=== PATIENT | female | born 1985 | race Caucasian/White ===

== ENCOUNTER 2021-02-04 12:27 | Outpatient (CLI) | payer OTHER, SELFPAY ==
[2021-02-04 12:45] VITALS: BP 115/74; PULSE 86
[2021-02-04 12:59] VITALS: PULSE 91; O2SAT 96
[2021-02-04 13:03] LABS: Glucose Point of Care 84 mg/dl (65-105)
[2021-02-04 13:04] VITALS: PULSE 70; O2SAT 100
--- NOTE | 2021-02-04 13:10 | PC.NURSE ---
1300-Pt called out and stated that she could not breathe. When entering the room, pt was pale and stated that she was nauseated and felt like she was going to pass out. Pt was given a cool rag, VSS, and pt reassured that everything was ok. ROM plus was negative and heart tones were appropriate for gestational age. Pt was turned to side, and given juice to drink and began feeling better. Remained at bedside with pt and pt stated that she felt better. Pt was no longer pale or nauseated.
--- NOTE | 2021-02-04 13:19 | PC.NURSE ---
Called Dr. Kirkpatrick. Informed of pt calling out stating that she couldn't breathe. Pt states that she feels better and would like to go home. PT states that she has anxiety and feels that it was an anxiety attack. VS remained stable and blood sugar was 84. May D/C home.
== END 2021-02-04 13:20 | disposition home or self-care (01) ==
LOC: ANHOBOP 12:31 → ANHOBPP 12:32
PROVIDERS: PCP Physician Assistant; Visit Provider Obstetrics & Gynecology
DX: O41.8X90 Other specified disorders of amniotic fluid and membranes, unspecified trimester, not applicable or unspecified (principal); Z3A.00 Weeks of gestation of pregnancy not specified
CPT/HCPCS: 82948; 84112; 99199

== ENCOUNTER 2021-05-29 11:23 | Outpatient (CLI) | payer BC, OTHER, SELFPAY ==
[2021-05-29 14:09] LABS: Hematocrit 39.1 % (37.0-47.0); Hemoglobin 13.2 g/dL (12.0-15.0); Mean Corpuscular HGB Conc 33.8 g/dl (32-36); Mean Corpuscular Hemoglobin 32.6 pg (26-34); Mean Corpuscular Volume 96.5 fl (80-100); Platelet Count Result 196 k/mm3 (150-375); Red Blood Count 4.05 M/mm3 (4.2-5.4); Red Cell Distribution Width 12.9 % (11.5-14.5); White Blood Count 12.2 K/mm3 (4.5-10.0)
[2021-05-31 07:40] LABS: Rapid Plasma Reagin Non-Reactive (NonReactive)
== END 2021-05-29 11:24 | disposition home or self-care (01) ==
PROVIDERS: PCP Physician Assistant; Visit Provider Obstetrics & Gynecology
DX: Z34.93 Encounter for supervision of normal pregnancy, unspecified, third trimester (principal); Z3A.00 Weeks of gestation of pregnancy not specified
CPT/HCPCS: 36415; 85027; 86592; 86850; 86900; 86901

== ENCOUNTER 2021-05-31 04:58 | Inpatient (IN) | payer BC, OTHER, SELFPAY ==
[2021-05-31] VITALS (36 sets, daily range): BP systolic 91–122; BP diastolic 60–88; PULSE 52–142; RESP 16–18; TEMP 36.1–36.6; O2SAT 96–100; BMI 25.8
--- OUTSIDE RECORDS SUMMARY | 2021-05-31 05:04 | XMS_ITS | Encounter Summary ---
:1985 Author Care Team Providers Name Role Phone Oumou PATEL Primary Care Provider [phone] Reason for Visit OB visit 35w4d Assessment and Plan 1. Routine care Discussion Note: None recorded.Patient educational handouts: No information available. Plan of Care Reminders Provider Appointments Surg Post 06/07/2021 Leonard Slater Op 1:45PM MD [facility] Lab None ? ? recorded. Referral None ? ? recorded. Procedures None ? ? recorded. Surgeries None ? ? recorded. Imaging None ? ? recorded. Medications Name Start Date ? ? ? Medications Administered None recorded. Vitals Height Weight BMI Blood Pressure 5 ft 1.5 in 140 lbs 26 kg/m2 124/85 mm[Hg] Results Lab Results None recorded. Allergies Code Code System Name Reaction Severity Onset 820644 RxNorm Augmentin Headache Mild to Moderate ? Problems Name Status Onset Date Source ? Active 11/26/2020 ? Procedures Date Name Performed by ?
--- OUTSIDE RECORDS SUMMARY | 2021-05-31 05:04 | XMS_ITS | Encounter Summary ---
:1985 Author Care Team Providers Name Role Phone Oumou PATEL Primary Care Provider [phone] Reason for Visit OB visit Assessment and Plan Assessment Note Patient is ___weeks . Discu ssed plan. 1. Routine care Discussion Note: None recorded.Patient [...] ft 1.5 in 140 lbs 26 kg/m2 (1) 127/88 mm[H g] (2) 130/86 mm[Hg ] Results Lab Results None recorded. Allergies Code Code System Name Reaction Severity Onset 971333 RxNorm Augmentin Headache Mild to Moderate ? Problems Name Status Onset Date Source ?
--- OUTSIDE RECORDS SUMMARY | 2021-05-31 05:04 | XMS_ITS | Encounter Summary ---
:1985 Author Care Team Providers Name Role Phone Oumou PATEL Primary Care Provider [phone] Reason for Visit OB visit Assessment and [...] ft 1.5 in 140 lbs 26 kg/m2 118/81 mm[Hg] Results Lab Results None recorded. Allergies Code Code System Name Reaction Severity Onset 311964 RxNorm Augmentin Headache Mild to Moderate ? Problems Name Status Onset Date Source ? Active 11/26/2020 ? Procedures Date
--- OUTSIDE RECORDS SUMMARY | 2021-05-31 05:04 | XMS_ITS ---
:1985 Author Care Team Providers Name Role Phone MANUELITO PATEL Primary Care Provider [phone] Allergies Code Code System Name Reaction Severity Status Onset 468503 RxNorm Augmentin Headache Mild to Active ? Moderate Medications Name Status Start Date Stop Date ? ? azithromycin 250 mg tablet Completed ? 10/01 Bactrim DS 800 mg-160 mg tablet Completed 11/26/2014 12/01/2014 take 1 tablet by oral route every 12 hours Bactroban 2 % topical ointment Completed 02/18/2015 0 10/01/2020 apply by topical route 3 times every day a small amount to the affected area Cipro 500 mg tablet Completed 01/13/2015 02/18/2015 take 1 tablet by oral route every 12 hours clonazepam 0.25 mg Completed ? 10/29/2020 disintegrating tablet Flexeril 5 mg tablet Completed 06/25/2014 09/10/2014 take 1 tablet by oral route 3 times every day as needed for nelson k pain Keflex 500 mg capsule Completed 12/01/2014 01/13/2015 take 1 capsule by oral route every 6 hours Active ? Not available Multi-DHA (with vitamin K) 27 mg iron-800 mcg-260 m g capsule Completed ? 01/20/2021 Take 1 capsule every day by oral route. promethazine 12.5 mg tablet Completed 02/28/201409/2014 take 1 tablet by oral route 4 times every day before meals and at bedtime tizanidine 4 mg tablet Completed ? TAKE 1 TABLET BY MOUTH EVERY 8 HOURS NEEDED Vitamin D2 1,250 mcg (50,000 unit) capsule Completed 03/2809/10/2014 take 1 capsule by oral route every week Problems Name
--- OUTSIDE RECORDS SUMMARY | 2021-05-31 05:04 | XMS_ITS | Encounter Summary ---
:1985 Author Care Team Providers Name Role Phone Oumou PATEL Primary Care Provider [phone] Reason for Visit OB visit 36w3d Assessment and Plan 1. Routine care Discussion [...] BMI Blood Pressure 5 ft 1.5 in 139 lbs 25.8 kg/m2 124/82 mm[Hg] Results Lab Results None recorded. Allergies Code Code System Name Reaction Severity Onset 515066 RxNorm Augmentin Headache Mild to Moderate ? Problems Name Status Onset Date Source ? Active 11/26/2020 ? Procedures Date Name Performed by ?
--- OUTSIDE RECORDS SUMMARY | 2021-05-31 05:05 | XMS_ITS ---
:1985 Author Allergies Code Code System Name Reaction Severity Status Onset 279835 RxNorm Augmentin ? ? Active ? Medications Name Status Start Date Stop Date ? ? almotriptan malate 12.5 mg tablet Completed ? 05/02/2016 amoxicillin 875 mg tablet Completed ? 2018 TAKE 1 TABLET BY MOUTH EVERY 12 HOURS amoxicillin 875 mg-potassium clavulanate 125 mg tablet Completed ? 11/15/2018 TAKE 1 TABLET BY MOUTH EVERY 12 HOURS azithromycin 250 mg tablet Active ? Not a vailable B2-magnesium cit,oxid-feverfew Completed ? 0 10/08/2018 takes one daily cefdinir 300 mg capsule Completed ? 05/25/19 17 TK 1 C PO Q 12 H clonazepam 0.25 mg disintegrating tablet Active ? Not available DISSOLVE 1 TABLET IN MOUTH ONCE DAILY NEEDED Imitrex 50 mg tablet Completed ? 12/30/2016 Take 1 tablet by oral route as needed. methocarbamol 750 mg tablet Completed ? 09/17 Nexium 40 mg capsule,delayed release Completed ? 11/18/2019 Take 1 capsule every day by oral route. omeprazole 40 mg capsule,delayed Completed ? 12/30/2016 release ondansetron HCl 4 mg tablet Completed ? 04/20 penicillin V potassium 500 mg tablet Completed ? 11/18/2019 TK 1 T PO 2 TIMES D FOR 10 DAYS propranolol ER 60 mg capsule,24 Completed ? 05/02/2016 hr,extended release sertraline 50 mg tablet Completed ? 06/25/19 17 TK 1 T PO QD valacyclovir 1 gram tablet Completed ? 10/08 Problems N
--- OUTSIDE RECORDS SUMMARY | 2021-05-31 05:05 | XMS_ITS ---
:1985 Author Allergies Code Code System Name Reaction Severity Status Onset NKDA ? Medications Name Status Start Date Stop Date ? ? amoxicillin 500 mg capsule Completed ? 12/07 Take 1 capsule 3 times a day by oral route for 10 days. clonazepam 0.5 mg tablet Completed ? 014 TK 1 T PO QD cyclobenzaprine 10 mg tablet Completed ? hydrocodone 7.5 mg-ibuprofen 200 mg Completed ? 10/09/2013 tablet Tessalon Perles 100 mg capsule Active ? N ot available Take 1 capsule 3 times a day by oral route. Problems Name Status Onset Date Source ? Anxiety State Active ? ? Neck Pain Active ? Encounter Palpitations Active ? Encounter Procedures Date Name Performed by ? 03/20/2002 Hernia Repair Information not avai lable 10/09/2013 Echocardiogram, Follow up or Limited Inf ormation not available Study 10/09/2013 Holter Monitor Information not avai lable Results Lab Results Date Name Specimen Result Interpretation Description Value Range Status Address ? 03/09/2020 Rapid SARS CoV ? Sars-cov-2 nonreactive no nreactive Final Flom 2 Ag, QL [place], (Covid-19) [facility] Antigen [facility] (Lab):
--- OUTSIDE RECORDS SUMMARY | 2021-05-31 05:05 | XMS_ITS | Encounter Summary ---
:1985 Author Care Team Providers Name Role Phone Oumou PATEL Primary Care Provider [phone] Reason for Visit None recorded. Assessment and Plan 1. Polyhydramnios ? US, obstetric, limited Discussion Note: None recorded.Patient educational handouts: No information available. Plan of Care Reminders Provider Appointments Surg Post Leonard Slater Op 06/07/2021 MD [facility] 1:45PM Lab None ? ? recorded. Referral None ? ? recorded. Procedures None ? ? recorded. Surgeries None ? ? recorded. Imaging , [facility] 04/23/2021 Medications Name Start Date ? ? ? Medications Administered None recorded. Vitals None recorded. Results Lab Results None recorded. Allergies Code Code System Name Reaction Severity Onset [id number] RxNorm Augmentin Headache Mild to Moderate ? Problems Name Status Onset Date Source ? Active 11/26/2020 ? Procedures Date Name Performed by ?
--- OUTSIDE RECORDS SUMMARY | 2021-05-31 05:05 | XMS_ITS | Encounter Summary ---
:1985 Author Care Team Providers Name Role Phone Oumou PATEL Primary Care Provider [phone] Reason for Visit None recorded. Assessment and Plan 1. Medical examination for suspe cted condition ? US, obstetric, follow-up Discussion Note: None recorded.Patient educational handouts: No information available. Plan of Care Reminders Provider Appointments Surg Post 06/07/2021 Leonard Kirkpatrick, [place] 1:45PM Lab None ? ? recorded. Referral None ? ? recorded. Procedures None ? ? recorded. Surgeries None ? ? recorded. Imaging US, 04/15/2021 [facility], Follow-up Medications Name Start Date ? ? ? Medications Administered None recorded. Vitals None recorded. Results Lab Results None recorded. Allergies Code Code System Name Reaction Severity Onset [id number] RxNorm Augmentin Headache Mild to Moderate ? Problems Name Status Onset Date Source ? Active 11/26/2020 ? Procedures Date Name Performed by ?
--- OUTSIDE RECORDS SUMMARY | 2021-05-31 05:05 | XMS_ITS | Encounter Summary ---
:1985 Author Care Team Providers Name Role Phone Oumou PATEL Primary Care Provider [phone] Reason for Visit OB visit 31w3d Assessment and Plan 1. Routine care Discussion [...] BMI Blood Pressure 5 ft 1.5 in 135 lbs 25.1 kg/m2 132/86 mm[Hg] Results Lab Results None recorded. Allergies Code Code System Name Reaction Severity Onset 871706 RxNorm Augmentin Headache Mild to Moderate ? Problems Name Status Onset Date Source ? Active 11/26/2020 ? Procedures Date Name Performed by ?
--- OUTSIDE RECORDS SUMMARY | 2021-05-31 05:05 | XMS_ITS | Encounter Summary ---
:1985 Author Care Team Providers Name Role Phone Oumou PATEL Primary Care Provider [phone] Reason for Visit OB visit 28W2D / glucose today Assessment and Plan 1. Routine care Discussion [...] BMI Blood Pressure 5 ft 1.5 in 133 lbs 24.7 kg/m2 134/87 mm[Hg] Results Lab Results None recorded. Allergies Code Code System Name Reaction Severity Onset 883290 RxNorm Augmentin Headache Mild to Moderate ? Problems Name Status Onset Date Source ? Active 11/26/2020 ? Procedures Date Name Performed by ?
--- OUTSIDE RECORDS SUMMARY | 2021-05-31 05:05 | XMS_ITS | Encounter Summary ---
:1985 Author Care Team Providers Name Role Phone Oumou PATEL Primary Care Provider [phone] Reason for Visit None recorded. Assessment and Plan 1. Reduced movement ? non-stress test Discussion Note: None recorded.Patient educational handouts: No information available. Plan of Care Reminders Provider Appointments Surg Post 06/07/2021 Leonard Kirkpatrick, Op 1:45PM Lab None ? ? recorded. Referral None ? ? recorded. Procedures None ? ? recorded. Surgeries None ? ? recorded. Imaging 04/28/2021 [place] Non-stress Test Medications Name Start Date ? ? ? Medications Administered None recorded. Vitals Blood Pressure 118/83 mm[Hg] Results Lab Results None recorded. Allergies Code Code System Name Reaction Severity Onset 955223 RxNorm Augmentin Headache Mild to Moderate ? Problems Name Status Onset Date Source ? Active 11/26/2020 ? Procedures Date Name Performed by ?
--- OUTSIDE RECORDS SUMMARY | 2021-05-31 05:05 | XMS_ITS ---
:1985 Author Care Team Providers Name Role Phone Menossi Primary Care Provider Unavailable Allergies Code Code System Name Reaction Severity Status Onset 467944 RxNorm Augmentin ? ? Active ? Medications Name Status Start Date Stop Date ? ? almotriptan malate 12.5 mg Completed ? 05/02 tablet amoxicillin 500 mg capsule Completed ? 12/07 Take 1 capsule 3 times a day by oral route for 10 days. amoxicillin 875 mg tablet Completed ? 2018 TAKE 1 TABLET BY MOUTH EVERY 12 HOURS amoxicillin 875 mg-potassium clavulanate 125 mg tablet Completed ? 11/15/2018 TAKE 1 TABLET BY MOUTH EVERY 12 HOURS azithromycin 250 mg tablet Completed ? 08/05 B2-magnesium cit,oxid-feverfew Completed 05/24/2016 0 10/08/2018 takes one daily cefdinir 300 mg capsule Completed ? 05/25/19 17 TK 1 C PO Q 12 H clonazepam 0.25 mg disintegrating tablet Active ? Not available DISSOLVE 1 TABLET IN MOUTH TWICE DAILY NEEDED FOR ANXIETY clonazepam 0.5 mg tablet Completed ? 014 TK 1 T PO QD cyclobenzaprine 10 mg tablet Completed ? hydrocodone 7.5 mg-ibuprofen 200 Completed ? 10/09/2013 mg tablet Imitrex 50 mg tablet Completed 05/24/2016 12/30/2016 Take 1 tablet by oral route as needed. methocarbamol 750 mg tablet Completed ? 09/17 Nexium 40 mg capsule,delayed release Completed ? 11/18/2019 Take 1 capsule every day by oral route. omeprazole 40
--- OUTSIDE RECORDS SUMMARY | 2021-05-31 05:05 | XMS_ITS | Encounter Summary ---
:1985 Author Care Team Providers Name Role Phone Oumou PATEL Primary Care Provider [phone] Reason for Visit OB visit 32W4D Assessment and Plan 1. Routine care Discussion [...] BMI Blood Pressure 5 ft 1.5 in 136 lbs 25.3 kg/m2 110/76 mm[Hg] Results Lab Results None recorded. Allergies Code Code System Name Reaction Severity Onset 320645 RxNorm Augmentin Headache Mild to Moderate ? Problems Name Status Onset Date Source ? Active 11/26/2020 ? Procedures Date Name Performed by ?
--- OUTSIDE RECORDS SUMMARY | 2021-05-31 05:05 | XMS_ITS | Encounter Summary ---
:1985 Author Care Team Providers Name Role Phone Oumou PATEL Primary Care Provider [phone] Reason for Visit None recorded. Assessment and Plan 1. condition affecting obs tetrical care of mother ? US, obstetric, biophysical profile + non-stress test Discussion Note: None recorded.Patient educational handouts: No information available. Plan of Care Reminders Provider Appointments Surg Post Op Emilie Slater 06/07/2021 MD [facility] 1:45PM Lab None recorded. ? ? Referral None recorded. ? ? Procedures None recorded. ? ? Surgeries None recorded. ? ? Imaging US, Obstetric, [facility] Biophysical Profile + 04/28/2021 Non-stress Test Medications Name Start Date ? ? ? Medications Administered None recorded. Vitals None recorded. Results Lab Results None recorded. Allergies Code Code System Name Reaction Severity Onset 266287 RxNorm Augmentin Headache Mild to Moderate ? Problems Name Status Onset Date Source ? Active 11/26/2020 ? Procedures
--- OUTSIDE RECORDS SUMMARY | 2021-05-31 05:05 | XMS_ITS | Encounter Summary ---
:1985 Author Care Team Providers Name Role Phone Oumou PATEL Primary Care Provider [phone] Reason for Visit OB visit Assessment and [...] BMI Blood Pressure 5 ft 1.5 in 137 lbs 25.5 kg/m2 120/79 mm[Hg] Results Lab Results None recorded. Allergies Code Code System Name Reaction Severity Onset 351528 RxNorm Augmentin Headache Mild to Moderate ? Problems Name Status Onset Date Source ? Active 11/26/2020 ? Procedures Date
--- NOTE | 2021-05-31 06:09 | LDADM ---
This patient, Bella Woodward, was admitted to Labor/Delivery/Recovery 120 on 05/31/21 at 04:58. Plans for labor, pain management and were discussed with patient. Patient/family oriented to hospital policies and general routines including ID bracelet, bed and alarms, visiting hours, pain management, procedures, bathroom and other care routines, personal items, smoking policy, room service/diet and guest tray routines, security routines, and visiting hours. Patient/Family are encouraged to report perceived risks to care and to ask questions if they do not understand what they are told or what they should do. See OBIX for further documentation.
[2021-05-31] MEDS: LACTATED RINGERS 1,000 ML 125 ML IV CONT ×2 (06:12→07:00)
--- NOTE | 2021-05-31 06:53 | WPDHPUPDATE1 ---
History and Physical Update Update Date/Time: 05/31/21 06:53 History and Physical has been reviewed, including an updated exam of the patient. There are NO changes in the patient's condition. Risks, benefits, and alternatives have been discussed and questions answered. Patient agrees to proceed with procedure.
--- NOTE | 2021-05-31 06:53 | PM.IMHP ---
H&P: HPI History of Present Illness Date/Time: 05/31/21 06:53This patient is a 35-year-old multiparous female who presents for repeat delivery. She has a history of delivery. She is also desirous of female sterilization. We have agreed to perform repeat delivery and bilateral salpingectomy or tubal ligation. She understands that injuries may occur that result in hospitalization, more surgery, and severe illness. She understands risk of infection and hemorrhage. She denies any chest pain or shortness of breath. She denies any nausea, vomiting, fever, chills. She reports good movement. She denies any contractions, loss of fluid, vaginal bleeding. Chief Complaint: term Review of Systems Review of Systems: All systems reviewed & are unremarkable except as noted in HPI and below Constitutional: Constitutional: Denies chills, Denies fatigue, Denies fever(s) and Denies weakness Eyes: Eyes: Denies blurry vision, Denies change in vision, Denies loss of peripheral vision, Denies loss of vision, Denies other visual disturbances and Denies eye pain ENT: Denies vertigo, Denies dizziness, Denies hearing loss, Denies mouth pain, Denies nasal obstruction, Denies neck mass and Denies neck pain Cardiovascular: Cardiovascular: Denies chest pain, Denies diaphoresis, Denies syncope, Denies leg edema and Denies dyspnea Respiratory: Respiratory: Denies chest congestion, Denies cough, Denies hemoptysis, Denies dyspnea and Denies wheezing Gastrointestinal: Gastrointestinal: Denies abdominal pain, Denies constipation, Denies diarrhea, Denies nausea and Denies vomiting Genitourinary: Genitourinary: Denies hematuria, Denies change in libido, Denies nocturia, Denies genital lesions, Denies flank pain and Denies urinary urgency Musculoskeletal: Musculoskeletal: Denies abnormal gait, Denies back pain, Denies myalgias, Denies arthralgias, Denies joint swelling, Denies muscle weakness and Denies neck pain Integumentary/Breasts: Skin/Breast: Denies swelling, Denies breast pain, Denies breast mass, Denies dry skin, Denies nipple discharge, Denies unusual bruising and Denies jaundice Neurologic: Denies Neuro-related abnormal movements, Denies Abnormal speech present, Denies abnormal gait, Denies behavioral changes, Denies confusion, Denies vertigo, Denies dizziness, Denies syncope, Denies loss of vision, Denies memory loss, Denies convulsions and Denies weakness Psychiatric: Psychiatric: Denies abnormal sleep pattern, Denies behavioral changes, Denies change in libido, Denies confusion, Denies depression, Denies anhedonia and Denies memory loss Endocrine: Endocrine: Reports no additional endocrine complaints, Denies change in libido and Denies fatigue Hematologic/Lymphatic: Hematologic/Lymphatic: Reports no additional hematologic/lymphatic complaints Allergic/Immunologic: Allergic/Immunologic: Reports no additional allergic/immunologic complaints and Denies wheezing PMFSH Past Medical History Medical History Anxiety Hx of pre-eclampsia, prior , currently Smoker Surgical History Surgical History (Updated 05/31/21 @ 06:56 by Donnie Kirkpatrick MD) H/O inguinal hernia repair History of section Family History Family History Mother Diabetes mellitus Grandparent Diabetes mellitus Father Diabetes mellitus Heart disease Social History Social History Smoking status: Current every day smoker Tobacco type: cigarettes Second hand tobacco smoke exposure: No Substance use: current Spiritual care concerns: No Meds Home Medications and Allergies Home Medications Medication Instructions Recorded Confirmed Type PNV cmb#95-ferrous fumarate-FA 1 tablet PO DAILY 05/12/21 05/31/21 History [] Allergies Allergy/AdvReac Type Severity Reaction Status Date /
[2021-05-31] MEDS: ceFAZolin 2 GM/D5W 50 ML 2 GM/50 ML BAG IVPB (07:00)
[2021-05-31] MEDS: KETOROLAC 30 MG/ML VIAL (*BKC) 15 MG IV PUSH (07:26)
--- NOTE | 2021-05-31 08:05 | W.PM.PROC2 ---
Procedure Note - Detailed Date of Procedure 05/31/21 Pre-op Diagnosis C/s , female sterilization, unwanted fertility Post-op Diagnosis Same Procedure Performed Low-transverse section, bilateral salpingectomy Surgeon Donnie Kirkpatrick MD Anesthesia Spinal Findings Normal gestational maternal anatomy, average size , normal Apgars. Adhesions between the uterus and the anterior abdominal wall, intra abdominal wall nodule. Description of Procedure The patient was taken the operating room. She was prepped and draped in dorsal supine position with a leftward tilt. This was done after spinal anesthetic was applied. A low-transverse skin incision was made and carried down till of the fascia with the knife. The previous scar was cut out an elliptical fashion. The fascial incision was made with the knife. The fascial incision was extended laterally with Durham scissors. The fascia was tented upward superiorly and inferiorly the rectus muscles were dissected off bluntly. The rectus muscles were the midline. The preperitoneal fat and peritoneum were dissected open bluntly at the superior aspect of the rectus muscles. The peritoneal incision was extended superior and inferior with good position of bladder. The uterine incision was made with a scalpel down to the level of the amniotic cavity. The amniotic cavity was entered bluntly. The infant was delivered. The cord was clamped and cut and the infant was handed off to waiting pediatric staff. Cord bloods were obtained. The placenta was removed manually. The uterus was exteriorized. The uterus was cleared of all clots, debris and membranes. The uterus was closed in 0 Vicryl running lock fashion. An imbricating over a was placed along the incision line as well. The uterus was adhered to the anterior abdominal wall. The tissue connecting the 2 structures was thick and within that area of the abdominal wall was a nodule. The tissue was in the nodule in the anterior abdominal wall was resected with scissors. It was more less avascular. The cut surfaces were cauterized. Each fallopian tube was grasped and raised with a Chaka. With from the underlying venous structures. The mesosalpinx between the tube and the rest the adnexa was cauterized and transected with LigaSure cautery. It was performed from the distal tube near the ovary in a stepwise fashion towards the cornua. The tube at the cornua was cauterized transected with LigaSure cautery. This was performed in a bilateral fashion. The uterus was returned to the abdomen. The gutters were cleared of all clots and debris. The fascia was closed with 0 Vicryl running fashion. The subcutaneous tissue was irrigated pinpoint bleeders were cauterized. The skin was closed with subcuticular absorbable hussain. The skin incision line was covered with glue. The patient tolerated the procedure well. She has taken recovery room in stable condition. Sponge lap and needle counts were correct x2. Complications No immediate complications Condition Stable Disposition PACU
[2021-05-31] MEDS: OXYTOCIN 30 UNITS/NS 500 ML 30 UNITS/500 ML BAG 125 UNITS IV CONT (09:33)
[2021-05-31] MEDS: HYDROcodone/acetaminophen (*CRX) 10-325 MG TABLET 1 TAB PO (13:59)
[2021-05-31] MEDS: DEXTROSE 5%/0.45% SOD CHL 1,000 ML 125 ML IV CONT (13:59)
[2021-05-31] MEDS: diphenhydrAMINE HCl INJ 50 MG/ML VIAL (14:00)
[2021-05-31] MEDS: HYDROcodone/acetaminophen (*CRX) 5-325 MG TABLET 1 TAB PO (22:25)
[2021-05-31] MEDS: IBUPROFEN 600 MG TABLET PO (22:25)
[2021-05-31] MEDS: SIMETHICONE 80 MG TAB.CHEW PO (22:26)
[2021-06-01 04:30] VITALS: BP 101/66; PULSE 79; RESP 18; TEMP 36.5
[2021-06-01] MEDS: IBUPROFEN 600 MG TABLET PO ×3 (04:48→22:59)
[2021-06-01 05:25] LABS: Basophils Absolute Auto 0.1 K/mm3 (0.0-0.1); Basophils Percent Auto 0.4 % (0.2-1.2); Eosinophils Absolute Auto 0.1 K/mm3 (0-0.3); Eosinophils Percent Auto 0.7 % (0-4.4); Hematocrit 32.9 % (37.0-47.0); Hemoglobin 10.9 g/dL (12.0-15.0); Immature Granulocyte Absolute 0.14 K/mm3 (0.00-0.031); Immature Granulocyte Percent A 0.9 % (0-0.5); Lymphocytes Absolute Auto 1.39 K/mm3 (0.9-3.2); Lymphocytes Percent Auto 9.2 % (18.3-44.2); Mean Corpuscular HGB Conc 33.1 g/dl (32-36); Mean Corpuscular Hemoglobin 32.4 pg (26-34); Mean Corpuscular Volume 97.9 fl (80-100); Mean Platelet Volume 10.4 fl (7.4-10.4); Monocytes Absolute Auto 1.1 K/mm3 (0.1-0.6); Neutrophils Absolute Auto 12.4 K/mm3 (1.3-6.7); Neutrophils Percent Auto 81.8 % (45.5-73.1); Platelet Count Result 169 k/mm3 (150-375); Red Blood Count 3.36 M/mm3 (4.2-5.4); White Blood Count 15.2 K/mm3 (4.5-10.0)
[2021-06-01 08:00] VITALS: BP 120/64; PULSE 78; RESP 18; TEMP 36.6; O2SAT 99
[2021-06-01] MEDS: SIMETHICONE 80 MG TAB.CHEW PO ×5 (09:05→22:59)
[2021-06-01] MEDS: DOCUSATE SODIUM 100 MG CAPSULE PO (09:06)
[2021-06-01] MEDS: MULTIVIT/MIN/PREN/FOL AC/IRON TABLET 1 TAB PO (09:06)
[2021-06-01] MEDS: HYDROcodone/acetaminophen (*CRX) 10-325 MG TABLET 1 TAB PO ×3 (09:06→18:31)
--- NOTE | 2021-06-01 10:23 | PM.OBPNVD ---
OB - PN: Subj Subjective Date/time seen: 06/01/21 10:23 Patient comments: no complaints, pain well controlled, tolerating diet and flatus present OB - PN: Obj Data Labs CBC & Chem 7: 06/01/21 04:34 Labs: Laboratory Results - last 24 hr 06/01/21 04:34 WBC 15.2 H RBC 3.36 L Hgb 10.9 L Hct 32.9 L MCV 97.9 MCH 32.4 MCHC 33.1 RDW 13.0 Plt Count 169 MPV 10.4 Immature Gran % (Auto) 0.9 H Neut % (Auto) 81.8 H Lymph % (Auto) 9.2 L [place] % (Auto) 7.0 Eos % (Auto) 0.7 Baso % (Auto) 0.4 Lymph # (Auto) 1.39 [place] # (Auto) 1.1 H Eos # (Auto) 0.1 Baso # (Auto) 0.1 Abs Immat Gran (auto) 0.14 H Absolute Neuts (auto) 12.4 H Absolute Nucleated RBC 0.0 Nucleated RBC % 0.0 OB - PN A/P Plan day: 1 Comments: Post Op LTCS - no problems, routine recovery Time Spent With Patient Time: Total time spent is greater than 50% in coordination of care (as documented) at patient's floor/unit and/or counseling patient: Exam Const: General: cooperative, healthy appearing, comfortable and no acute distress Resp: Auscultation: no crackles, no rales, no rhonchi and no wheezes Cardio: Rhythm: regular rhythm Heart sounds: no click and no murmurs GI: Inspection: non-distended Auscultation: normal bowel sounds Extrem: General: normal to inspection, no pedal edema and no calf tenderness
--- NOTE | 2021-06-01 10:53 | WPDANLDPN2 ---
Anes-Prog Note L&D Date/Time: 06/01/21 10:53 Comfortable throughout: section Neuraxial method: spinal Epidural/Spinal procedure site: clean & non-tender Neuro status: Neuro function grossly intact. Cardiovascular status: normal Respiratory status: normal Airway patency: baseline Mental status: baseline Post-Op hydration status: normal Vital Signs: Last Vital Signs Temp 36.6 C 06/01/21 08:00 Pulse 78 06/01/21 08:00 Resp 18 06/01/21 08:00 BP 120/64 06/01/21 08:00 Pulse Ox 99 06/01/21 08:00 Pain score (VAS): 2/10 I/O: Intake & Output 05/31/21 06/01/21 06/01/21 23:59 07:59 15:59 Intake Total 3150 700 350 Output Total 2250 1550 Balance 900 -850 350 Post-procedural complaints: none Patient feedback: Patient satisfied with anesthetic care.
--- NOTE | 2021-06-01 10:53 | WPDANLDNPN2 ---
Anes-Prog Note L&D-Neuraxial Date/Time: 06/01/21 10:53 Neuraxial medications: intrathecal PF morphine Opiod-related complaints: none Patient feedback: Patient satisfied with post-operative pain management.
[2021-06-01 19:40] VITALS: BP 110/81; PULSE 82; RESP 16; TEMP 36.6
[2021-06-02] MEDS: IBUPROFEN 600 MG TABLET PO ×2 (04:49→11:56)
[2021-06-02] MEDS: HYDROcodone/acetaminophen (*CRX) 5-325 MG TABLET 1 TAB PO ×2 (04:50→11:57)
[2021-06-02] MEDS: SIMETHICONE 80 MG TAB.CHEW PO ×2 (04:50→11:55)
--- NOTE | 2021-06-02 07:43 | PM.OBDSVD ---
DS: Admitting Diagnosis Discharge Date 06/02/2021 Admitting Diagnosis term gestation DS: Discharge Diagnosis Discharge Diagnosis (1) Previous delivery, delivered: Code(s): O34.219 - Maternal care for unspecified type scar from previous delivery Status: Acute (2) Encounter for female sterilization procedure: Code(s): Z30.2 - Encounter for sterilization Status: Acute OB - DS: Summary OB Procedures : None OB Procedures Intrapartum: and Tubal ligation OB Procedures: : None Peripartum Data Delivery Method: Section Procedures: Procedures Operation Date: 05/31/21 07:00 Actual Procedure Side Surgeon p Section Not Applicable Donnie Kirkpatrick MD Time Spent with Patient Time attestation: Total time spent providing and/or coordinating discharge services: DS: Data Data Completed and Pending Completed studies during hospitalization: Pending at discharge 05/31/21 08:52 Surgical [PTH] Routine Discharge Plan Discharge Discharging Clinician: Donnie Kirkpatrick Patient Disposition: Home, Self-Care Activity: pelvic rest Diet: regular Patient Instructions: Antibiotic Form Stand Alone Forms: General Discharge Information Follow-up/Referrals: Donnie Kirkpatrick MD [Physician] - Discharge Medications: New hydrocodone-acetaminophen 5-325 mg tablet 1 tablet PO Q4H PRN (Reason: pain) Qty: 25 RF: 0 Continued PNV [id number] fumarate-FA [] 28 mg iron- 800 mcg Tablet 1 tablet PO DAILY RF: 0 Date of admission: 05/31/21 04:58 Primary Care Provider: Brant,Oumou Admitting Provider: Donnie Kirkpatrick Attending physician on admission: Donnie Kirkpatrick Condition: Stable
[2021-06-02 08:30] VITALS: BP 109/59; PULSE 73; RESP 18; TEMP 36.6; O2SAT 97
[2021-06-02 09:15] VITALS: PULSE 73; RESP 18; O2SAT 97
[2021-06-02] MEDS: MULTIVIT/MIN/PREN/FOL AC/IRON TABLET 1 TAB PO (11:57)
[2021-06-02] MEDS: DOCUSATE SODIUM 100 MG CAPSULE PO (11:57)
[2021-06-03 14:19] VITALS: BP 127/79; PULSE 81; RESP 20; TEMP 36.8; O2SAT 99
== END 2021-06-02 12:58 | disposition home or self-care (01) | DRG 785 ==
LOC: ANHLDR 05:01 → ANHOB2 10:28
PROVIDERS: Admitting Provider Obstetrics & Gynecology; PCP Physician Assistant; Visit Provider Obstetrics & Gynecology
PROC: 10D00Z1 Extraction of Products of Conception, Low, Open Approach (ICD-10-PCS; CPT 59514; principal; 2021-05-31 07:00)
DX: O34.211 Maternal care for low transverse scar from previous cesarean delivery (principal); Z37.0 Single live birth; Z3A.39 39 weeks gestation of pregnancy; O99.824 Streptococcus B carrier state complicating childbirth; R19.09 Other intra-abdominal and pelvic swelling, mass and lump; Z30.2 Encounter for sterilization
CPT/HCPCS: 36415; 85025; 88302; 88304; A9270; J0131; J0690; J1200; J1885; J2274; J2370; J2405; J2590; J7120

== ENCOUNTER 2024-04-10 12:25 | Outpatient (CLI) | payer OTHER, SELFPAY ==
--- NOTE | ~2024-04-10 | MM_ITS ---
EXAMINATION: MM screening [facility] w marisela HISTORY: Screening TECHNIQUE: Craniocaudal and mediolateral oblique 3-D tomosynthesis images were obtained and synthetic 2-D images were generated. CAD analysis was submitted and interpreted. COMPARISON: No prior mammogram is available for comparison at this institution. BREAST PARENCHYMAL COMPOSITION: Dense: The breasts are heterogeneously dense, which may obscure small masses FINDINGS: There is no evidence of suspicious mass, calcification, or architectural distortion to sugg est malignancy in either breast. There has been no suspicious interval change. IMPRESSION: 1. No mammographic evidence of malignancy. 2. Recommend routine screening mammography in one year. BI-RADS Category 1: Negative Reviewed, dictated and finalized at location A. ER ROOM ATTENDANT
== END 2024-04-10 12:26 | disposition home or self-care (01) ==
LOC: MICIMG 12:27
PROVIDERS: PCP Physician Assistant; Visit Provider Physician Assistant
DX: Z12.31 Encounter for screening mammogram for malignant neoplasm of breast (principal)
CPT/HCPCS: 77063; 77067